=== PATIENT | female | born 1990 | race Caucasian/White ===

== ENCOUNTER 2020-11-11 12:07 | Emergency (ER) | payer OTHER ==
[2020-11-11 15:07] LABS: HEMOGLOBIN 14.7 gm/dl (12.3-15.3); RED BLOOD COUNT 4.93 M/UL (4.00-5.10); WHITE BLOOD COUNT 10.8 K/UL (4.5-11.0)
[2020-11-11 15:29] LABS: BUN/CREATININE RATIO 15 (0-10)
[2020-11-11] MEDS ORDERED: TESSALON PERLE100 MG PO (17:37)
== END 2020-11-11 17:46 | disposition home or self-care (01) ==
LOC: ER1 12:07
PROVIDERS: Emergency Medicine
DX: J06.9 Acute upper respiratory infection, unspecified (principal); Z20.822 Contact with and (suspected) exposure to COVID-19; F17.210 Nicotine dependence, cigarettes, uncomplicated
CPT/HCPCS: 0240U; 71045; 80053; 81001; 84703; 85025; 85379; 86140; 87040; 87081; 87880; 99283

== ENCOUNTER → 2021-11-02 | Outpatient (CLI) | payer OTHER ==
[~2021-11-02] MED LIST: TESSALON PERLE100 MG PO
== END ==
LOC: HEART CORB 12:45
DX: I45.6 Pre-excitation syndrome (principal); R07.2 Precordial pain